=== PATIENT | male | born 1995 | race Caucasian/White ===

== ENCOUNTER 2017-11-30 08:23 | Emergency (ER) | payer BC ==
[~2017-11-30] VITALS: Ht 188 cm; Wt 87.3 kg
[2017-11-30 08:28] VITALS: BP 155/82; TEMP 99.9
[2017-11-30 10:08] LABS: BASO % 0.2 % (0.0-2.0); EOS # 0.1 (0.0-0.7); EOS % 0.6 % (0-4.0); GRAN # 13.3 (1.4-6.5); GRAN % 85.5 % (42.2-75.2); HEMOGLOBIN 14.6 g/dl (13.5-18.0); LYMPH # 0.8 (1.2-3.4); LYMPH % 5.3 % (20.0-51.0); MEAN CELL VOLUME 98 fl (80.0-100.0); MEAN CORPUSCULAR HEMOGLOBIN 33 pg (27.0-31.0); MEAN CORPUSCULAR HGB CONC 34 g/dl (33.0-37.0); MEAN PLATELET VOLUME 9.7 fl (7.4-10.4); MONO # 1.3 (0.1-0.6); PLATELET COUNT 182 K/mm3 (130-400); RED BLOOD COUNT 4.41 M/mm3 (4.20-5.60)
[2017-11-30 10:17] LABS: ALBUMIN 4.1 gm/dL (3.5-5.0); BILIRUBIN,TOTAL 1.2 mg/dL (0.0-1.0); CALCIUM 9.3 mg/dL (8.4-10.2); CREATININE, serum 0.96 mg/dL (0.66-1.25); POTASSIUM 4.1 mmol/L (3.4-5.0); TOTAL PROTEIN 7.5 gm/dL (6.4-8.2)
[2017-11-30] MEDS ORDERED: AMOXICILLIN 50500 MG PO (10:44)
[2017-11-30 11:16] VITALS: PULSE 80
== END 2017-11-30 11:17 | disposition home or self-care (01) ==
LOC: COL.ER 08:23
PROVIDERS: Physician Assistant
DX: J02.0 Streptococcal pharyngitis (principal)
CPT/HCPCS: J1885; J7030

== ENCOUNTER 2017-11-30 20:23 | Inpatient (IN) | payer BC ==
[~2017-11-30] VITALS: Ht 188 cm; Wt 90.7 kg
[~2017-11-30 20:23] MED LIST: AMOXICILLIN 50500 MG PO
[2017-11-30 23:28] LABS: BASO # 0.1 (0.0-0.2); BASO % 0.3 % (0.0-2.0); EOS % 0.2 % (0-4.0); GRAN # 14.5 (1.4-6.5); GRAN % 87.3 % (42.2-75.2); HEMATOCRIT 40.6 % (42.0-52.0); HEMOGLOBIN 14.1 g/dl (13.5-18.0); LYMPH # 0.6 (1.2-3.4); LYMPH % 3.6 % (20.0-51.0); MEAN CELL VOLUME 97 fl (80.0-100.0); MEAN CORPUSCULAR HEMOGLOBIN 34 pg (27.0-31.0); MEAN CORPUSCULAR HGB CONC 35 g/dl (33.0-37.0); MEAN PLATELET VOLUME 9.3 fl (7.4-10.4); MONO # 1.3 (0.1-0.6); MONO % 7.8 % (1.7-9.3); PLATELET COUNT 175 K/mm3 (130-400); RED BLOOD COUNT 4.19 M/mm3 (4.20-5.60); REDCELL DISTRIBUTION WIDTH-CV 12.1 % (11.5-14.5)
[2017-11-30 23:53] VITALS: BP 153/84; PULSE 94; TEMP 98.8
[2017-12-01 01:57] VITALS: BP 151/84; PULSE 78; TEMP 99.8
[2017-12-01 05:37] VITALS: BP 153/90; PULSE 83; TEMP 99.2
[2017-12-01 09:27] VITALS: BP 158/77; PULSE 90; TEMP 99.6
[2017-12-01 13:50] VITALS: BP 157/86; PULSE 79; TEMP 98.7
[2017-12-01 17:46] VITALS: BP 145/84; PULSE 68; TEMP 99.7
[2017-12-01 21:43] VITALS: BP 151/72; PULSE 65; TEMP 99.3
[2017-12-02] VITALS (12 sets, daily range): BP systolic 119–152; BP diastolic 53–80; PULSE 55–83; TEMP 98–98.5
[2017-12-02 06:07] LABS: HEMATOCRIT 39.5 % (42.0-52.0); HEMOGLOBIN 13.5 g/dl (13.5-18.0); MEAN CELL VOLUME 97 fl (80.0-100.0); MEAN CORPUSCULAR HEMOGLOBIN 33 pg (27.0-31.0); MEAN CORPUSCULAR HGB CONC 34 g/dl (33.0-37.0); MEAN PLATELET VOLUME 9.5 fl (7.4-10.4); PLATELET COUNT 191 K/mm3 (130-400); RED BLOOD COUNT 4.07 M/mm3 (4.20-5.60); REDCELL DISTRIBUTION WIDTH-CV 12.1 % (11.5-14.5)
[2017-12-02 06:53] LABS: BAND 4 % (0-10); LYMPHOCYTE 5 % (20.0-51.0); NEUTROPHILS 86 % (42.0-75.2)
[2017-12-02 06:54] LABS: PLATELET ESTIMATE NORMAL (NORMAL)
[2017-12-03 01:09] VITALS: BP 119/57; PULSE 58; TEMP 98
[2017-12-03 04:58] VITALS: BP 128/82; PULSE 72; TEMP 97.9
[2017-12-03 09:00] VITALS: BP 118/62; PULSE 64; TEMP 97.6
[2017-12-03] MEDS ORDERED: CLEOCIN HCL300 MG PO (12:16)
== END 2017-12-03 12:50 | disposition home or self-care (01) | DRG 134 ==
LOC: COL.ER 20:23 → SURG 23:22
PROVIDERS: Student in an Organized Health Care Education/Training Program
PROC: 0C9P0ZZ Drainage of Tonsils, Open Approach (ICD-10-PCS; principal; 2017-11-30)
PROC: 0C9M0ZZ Drainage of Pharynx, Open Approach (ICD-10-PCS; 2017-12-02)
DX: J36 Peritonsillar abscess (principal)
CPT/HCPCS: OP; G0378; J0295; J0330; J1100; J1885; J2270; J2405; J2704; J2765; J3010; J3480; Q9967

== ENCOUNTER 2018-07-04 01:06 | Emergency (ER) | payer BC ==
[~2018-07-04] VITALS: Ht 188 cm; Wt 88.6 kg
[~2018-07-04 01:06] MED LIST changes: +CLEOCIN HCL300 MG PO
[2018-07-04 01:11] VITALS: TEMP 96.8
[2018-07-04] MEDS ORDERED: ZOFRAN 4MG T4 MG/TAB PO (03:55)
[2018-07-04 04:03] VITALS: BP 118/69; PULSE 79
== END 2018-07-04 04:05 | disposition home or self-care (01) ==
LOC: COL.ER 01:06
DX: S06.0X0A Concussion without loss of consciousness, initial encounter (principal); S01.01XA Laceration without foreign body of scalp, initial encounter; S61.214A Laceration without foreign body of right ring finger without damage to nail, initial encounter; Z23 Encounter for immunization; W01.198A Fall on same level from slipping, tripping and stumbling with subsequent striking against other object, initial encounter; Y92.511 Restaurant or cafe as the place of occurrence of the external cause

== ENCOUNTER 2018-07-06 22:32 | Emergency (ER) | payer BC ==
[~2018-07-06] VITALS: Ht 188 cm; Wt 90.9 kg
[~2018-07-06 22:32] MED LIST changes: +ZOFRAN 4MG T4 MG/TAB PO
[2018-07-06 22:35] VITALS: BP 138/74; PULSE 68; TEMP 98.7
[2018-07-06] MEDS ORDERED: FLEXERIL 1010 MG/TAB PO (23:18)
[2018-07-06] MEDS ORDERED: CEPHALEXIN500 M1 PO (23:18)
== END 2018-07-06 23:25 | disposition home or self-care (01) ==
LOC: COL.ER 22:32
DX: S01.01XA Laceration without foreign body of scalp, initial encounter (principal); S61.214A Laceration without foreign body of right ring finger without damage to nail, initial encounter; M54.2 Cervicalgia; X58.XXXA Exposure to other specified factors, initial encounter

== ENCOUNTER 2018-08-13 03:06 | Emergency (ER) | payer BC ==
[~2018-08-13] VITALS: Ht 188 cm; Wt 90.9 kg
[~2018-08-13 03:06] MED LIST changes: +CEPHALEXIN500 M1 PO; +FLEXERIL 1010 MG/TAB PO
[2018-08-13 03:12] VITALS: BP 130/94; TEMP 98.2
[2018-08-13 03:42] VITALS: PULSE 89
== END 2018-08-13 03:50 | disposition home or self-care (01) ==
LOC: COL.ER 03:06
DX: S01.111A Laceration without foreign body of right eyelid and periocular area, initial encounter (principal); W22.8XXA Striking against or struck by other objects, initial encounter; Y92.009 Unspecified place in unspecified non-institutional (private) residence as the place of occurrence of the external cause